=== PATIENT | male | born 1975 | race Caucasian/White ===

== ENCOUNTER 2023-04-07 15:34 | Outpatient (CLI) | payer BC | END 2023-04-07 15:35 | disposition home or self-care (01) | LOC: CSHRAD 15:34 | PROVIDERS: ATTEND Psychiatry & Neurology Neurology | DX: M48.061 Spinal stenosis, lumbar region without neurogenic claudication (principal); M48.02 Spinal stenosis, cervical region; M46.1 Sacroiliitis, not elsewhere classified; N20.0 Calculus of kidney | CPT/HCPCS: 72100 ==